=== PATIENT | female | born 2000 | race Caucasian/White ===

== ENCOUNTER 2024-04-24 08:50 | Outpatient (AMB) | payer OTHER, SELFPAY ==
--- NOTE | 2024-04-24 08:50 | MHC.OFFVIS ---
Vital Signs 04/24/24 08:58 Height 5 ft 3 in Weight 147 lb 8 oz BMI 26.1 BP 128/86 Blood Pressure Location Rt femoral Pulse 87 Pulse Source Pulse Oximeter Pulse Oximetry (%) 98 Oxygen Delivery Method Room Air Intake Visit Reasons: Chronic RLQ pain Intake Note: Pain today 02/20 Structural Steel Equipment Erector Required: No Structural Steel Equipment Erector Services: Structural Steel Equipment Erector Offered & Declined Accompanied by: Self / Same As Patient Allergies dupilumab [From Dupixent Pen] Allergy (Unknown, Verified 04/24/24 08:57) Swelling lorazepam [From Ativan] Allergy (Unknown, Verified 04/24/24 08:57) Dystonia sulfamethoxazole [From Bactrim] Allergy (Unknown, Verified 04/24/24 08:57) serum sickness tezepelumab-ekko [From Tezspire] Allergy (Unknown, Verified 04/24/24 08:57) Hives trimethoprim [From Bactrim] Allergy (Unknown, Verified 04/24/24 08:57) serum sickness HPI HPI Chronic RLQ pain: Details: Patient is a pleasant 23 years old female with history of anemia, IBS, constipation, GERD, asthma, L5-S1 disc herniation and facet arthropathy, extensive toupet fundoplication for severe GERD (2011), kidney stones, presents today for initial evaluation for chronic right lower quadrant abdominal pain. She was referred to our office by her PCP to evaluate chronic right lower quadrant abdominal pain. Patient reports she underwent extensive GI and Senior Technical Trainer evaluation at [facility] and was told her symptoms were related to constipation and refractory GERD. Reports pelvic and transvaginal US in 2021 showed no ovarian cysts and abdominal MRI were normal, except severe constipation per patient. She also reports normal colonoscopy in 05/02/2023. Imaging and operative reports are not available today. Patient reports she is followed by Dr. Ty at [facility] and was started on Linzess for constipation with some resolution of constipation to the point of loose stools. She is currently titrating down Linzess due to loss of bowel control. Reports RLQ pain as constant tightness, aching, stabbing, sharp, shooting, dull, tiring, squeezing, bloating. Pain worsens with prolonged standing, tender to touch, and alleviated at times with lying down, resting, relaxation and breathing techniques. Reports increased pain during menstrual periods. Denies increase in pain with p.o. intake or fasting. She also reports low back pain with flexing forward or bending. Patient currently avoids gym workouts and weightlifting due to exacerbation of pain. Patient has tried pelvic floor therapy but found this to be invasive and ineffective. She was also previously seen at [facility] and [facility] pain management and underwent ultrasound-guided abdominal nerve blocks and scar pulling technique for incisional/scar pain after fundoplication procedure with no pain relief. She denies any significant pain around or at abdominal scars. Denies any fever, chills, weight loss, infection, rash, nausea, vomiting, bleeding, rectal pain, groin or perineum pain, weakness, footdrop, bladder or bowel dysfunction or saddle anesthesia. Location: RLQ abdominal wall pain, intermittent low back pain Duration: Chronic pain for1.5 years Characteristics of symptom or complaint: Squeezing, spasming, stabbing, tiring, aching, dull, shooting, pressure Aggravating or associated factors: Standing, sitting, physical activity, ADLs, sneezing, exercizing Relieving factors: Laying down, Tylenol, Ibuprofen, Linzess Treatment: GI and Senior Technical Trainer evaluations, MRI, Abd/Pelvic/transvaginal US, scar pulling, PT [facility] Medical History (Updated 04/24/24 @ 21:55 by RONY Woods) Deviated septum IBS (irritable bowel syndrome) Asthma Eczema Anemia GERD (gastroesophageal reflux disease) Constipation Chronic right lower quadrant pain Surgical History (Updated 04/24/24 @ 20:49 by RONY Woods) History of Juan fundoplication (~2011) Social History (Updated 04/24/24 @ 08:59 by Daisy Chapa) Alcohol intake: current Alcohol intake frequency: holidays/special occasions only Patient Tobacco Use Status: Never used Tobacco Review of Systems Const All systems reviewed & are unremarkable except as noted in HPI and below Physical Exam Vital Signs: Last Vital Signs Pulse 87 04/24/24 08:58 BP 128/86 04/24/24 08:58 Pulse Ox 98 04/24/24 08:58 Oxygen Delivery Method Room Air 04/24/24 08:58 BMI result Body Mass Index 26.1 General: Appears afebrile. Alert and oriented. Mood and affect appropriate. Follows and participates in conversation appropriately. Respiratory effort is unlabored. No cough. No nasal discharge. Able to transition from sit to stand unassisted. Ambulates with bilaterally normal heel strike and toe off. GI Inspection: Yes normal to inspection, No abdominal wall ecchymosis, Yes scar and No visible herniation Palpation (GI): Soft to palpation, Tenderness to palpation present (GI) in the RLQ; psoas sign negative, with no rebound tenderness and Rovsing's sign negative, Guarding due to palpation present (GI) in the RLQ, not rigid, No hepatosplenomegaly present and Carnett's sign positive Percussion: Yes normal to percussion General: Yes no CVA tenderness Back/Spine/Pelvis Back: no CVA tenderness Cervical Spine: cervical ROM normal and No Cervical spine tenderness Thoracic/Lumbar Spine: thoracic and lumbar spine normal to inspection, No Thoracic/lumbar spine scar(s), Lasegue's sign negative, straight leg raise negative bilaterally, pain with thoraco-lumbar ROM, paraspinal muscle tenderness on the left, No thoracic spinal tenderness and lumbar spinal tenderness at L3 Pelvis: no buttock tenderness Sacroiliac joints: bilaterally nontender Extrem General: Yes capillary refill normal, Yes no clubbing, cyanosis or edema and Yes no calf tenderness Results Reviewed Results Reviewed: MR LUMBAR SPINE WITHOUT CONTRAST 02/25/2018 HISTORY: Low back pain, sciatica, rule out disc disease, initial encounter. COMPARISON: None. TECHNIQUE: Sagittal and axial T1-weighted and fast spin echo T2-weighted images were obtained. FINDINGS: There is significant image degradation due to motion somewhat limiting the exam. L1-2: The disc is of normal height and signal intensity without significant disc bulge or herniation. L2-3: The disc is of normal height and signal intensity without significant disc bulge or herniation. L3-4: The disc is of normal height and signal intensity without significant disc bulge or herniation. L4-5: The disc is of normal height and signal intensity without significant disc bulge or herniation. L5-S1: There is mild retrolisthesis. The disc is of diminished height and signal intensity. There is moderate central disc herniation and degenerative facet arthropathy abutting but not definitely displacing the S1 nerve roots and causing no significant impression upon the dural sac or foramen. There is straightening of the normal lumbar lordosis and mild retrolisthesis at L5-S1. The conus terminates at L1 and appears normal. There is no paraspinous mass. IMPRESSION: 1. Limited examination due to motion. 2. Moderate central disc herniation and mild degenerative facet arthropathy L5-S1. Disc material abuts but does not definitely displace the S1 nerve roots within the lateral recesses. 3. Lumbar muscle spasm. Assessment & Plan Assessment & Plan (1) Chronic right lower quadrant pain: Code(s): R10.31 - Right lower quadrant pain; G89.29 - Other chronic pain Category: Medical (2) Abdominal wall pain in right lower quadrant: Code(s): R10.31 - Right lower quadrant pain Category: Medical (3) History of fundoplication: Code(s): Z98.890 - Other specified postprocedural states Category: Surgical (4) Lumbar spondylosis: Code(s): M47.816 - Spondylosis without myelopathy or radiculopathy, lumbar region Category: Medical (5) Lumbar disc herniation: Code(s): M51.26 - Other intervertebral disc displacement, lumbar region Category: Medical Plan Medical release request sent to [facility] and [facility] for imaging and procedures related to chronic RLQ pain. Previous lumbar spine MRI reports reviewed with patient today. We will update her MRIs including thoracic to assess for neural integrity and compression and follow up on previous MRI findings. Patient requests this to be completed at [facility]. Discussed interventional treatments to address her abdominal wall pain in the RLQ, including diagnostic ultrasound-guided nerve blocks. Patient is also interested to restart physical therapy. Script provided today. All questions and concerns have been answered and patient agreed with the treatment plan. Follow-up for MRI results, old records review and sooner as needed. Orders: Orders MR lumbar spine wo con Today M47.816 - Spondylosis without myelopathy or radiculopathy, lumbar region, M51.26 - Other intervertebral disc displacement, lumbar region MR thoracic spine wo con Today G89.29 - Other chronic pain, R10.31 - Right lower quadrant pain, Z98.890 - Other specified postprocedural states PT Evaluation and Treatment Today G89.29 - Other chronic pain, R10.31 - Right lower quadrant pain, Z98.890 - Other specified postprocedural states Coding Level of Care Code New Pt Level 4 (85571) Diagnoses Chronic right lower quadrant pain R10.31; G89.29 Abdominal wall pain in right lower quadrant R10.31 History of fundoplication Z98.890 Lumbar spondylosis M47.816 Lumbar disc herniation M51.26
[2024-04-24 08:58] VITALS: BP 128/86; PULSE 87; O2SAT 98; BMI 26.1
== END 2024-04-24 09:43 | disposition home or self-care (01) ==
PROVIDERS: PCP Nurse Practitioner Primary Care; Visit Provider Nurse Practitioner Family
DX: R10.31 Right lower quadrant pain (principal); G89.29 Other chronic pain; Z98.890 Other specified postprocedural states; M47.816 Spondylosis without myelopathy or radiculopathy, lumbar region; M51.26 Other intervertebral disc displacement, lumbar region
CPT/HCPCS: 99204

== ENCOUNTER → 2024-04-24 08:50 | Outpatient (BNVA) | payer OTHER, SELFPAY | PROVIDERS: PCP Nurse Practitioner Primary Care; Visit Provider Nurse Practitioner Family ==

== ENCOUNTER 2025-05-25 13:09 | Outpatient (AMB) | payer OTHER, SELFPAY ==
--- NOTE | 2025-05-25 13:11 | MHC.OFFVIS ---
Vital Signs 05/25/25 13:12 Height 5 ft 3 in Weight 156 lb 4 oz BMI 27.7 BP 100/66 Blood Pressure Location Rt brachial Position Sitting Pulse 70 Pulse Source Pulse Oximeter Pulse Oximetry (%) 99 Oxygen Delivery Method Room Air Intake Visit Reasons: Asthma Allergies dupilumab (From Dupixent Pen) Allergy (Unknown, Verified 05/25/25 13:17) Swelling lorazepam (From Ativan) Allergy (Unknown, Verified 05/25/25 13:17) Dystonia sulfamethoxazole (From Bactrim) Allergy (Unknown, Verified 05/25/25 13:17) serum sickness tezepelumab-ekko (From Tezspire) Allergy (Unknown, Verified 05/25/25 13:17) Hives trimethoprim (From Bactrim) Allergy (Unknown, Verified 05/25/25 13:17) serum sickness HPI HPI Asthma: Details: Raghu is a pleasant 24 year old female, never smoker, with underlying asthma, eczema, allergic rhinitis, anemia, GERD, and IBS. She was referred by PCP for pulmonary evaluation, previously under the care of pediatric provider who has retired. She has been moderately controlled on Wixela, Albuterol, Flonase and Zyrtec. The patient has a history of pediatric asthma, which she hoped to outgrow, but it persisted into adulthood. 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 She has had multiple courses of steroids, including Medrol Dosepak, this year for exacerbations. In 2022 and 2023, she experienced severe asthma flare-ups and tried various treatments, including Tespire injections and Dupixent, both of which caused adverse reactions. She reports dry eye syndrome as a side effect of Dupixent, leading to the use of Restasis and is under the care of ophthalmology. The patient has a history of gastroesophageal reflux disease (GERD) since childhood, which led to frequent bronchoscopies due to aspiration and bacterial pneumonia. She underwent a partial fundoplication to manage severe GERD symptoms, which improved her condition but did not completely resolve it. She is not currently established with GI. She also has a history of eczema, which presents as patches resembling cigarette pineda, and she manages it with topical treatments. Additionally, she has experienced chronic sinusitis, which improved after deviated septum surgery in 2019. 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 Prior allergy testing revealed multiple environmental allergies however speeder machine operator felt allergen immunotherapy would not be an optimal choice due to significance of allergies. She has been advised to re-establish care with an speeder machine operator for ongoing management of her allergies. She reports a herniated disc at L5-S1, which causes significant back pain and radiculopathy, managed with physical therapy and injections. She has tried various non-surgical interventions but continues to experience pain and functional limitations, following with specialist in [place]. Previously underwent testing for CTD which was unremarkable. [facility] Medical History (Updated 05/29/25 @ 08:50 by Inna Shook NP) Deviated septum IBS (irritable bowel syndrome) Asthma Eczema Anemia GERD (gastroesophageal reflux disease) Constipation Chronic right lower quadrant pain Surgical History (Updated 04/24/24 @ 20:49 by RONY Woods) History of Juan fundoplication (~2011) Social History Alcohol intake: current Alcohol intake frequency: holidays/special occasions only Patient Tobacco Use Status: Never used Tobacco Review of Systems Const Denies chills, Denies excessive sweating, Denies fever(s), Denies headache(s) and Denies night sweats Eyes Denies dry eyes, Denies irritation and Denies itchy eyes ENT Reports Normal hearing present, Denies headache(s), Denies nasal congestion, Denies nasal discharge, Denies post nasal drip and Denies sore throat Card Denies chest pain, Denies chest pain at rest, Denies chest pain with activity, Denies claudication, Denies leg edema, Reports dyspnea on exertion, Denies orthopnea and Denies paroxysmal nocturnal dyspnea Resp Denies chest congestion, Denies cough, Denies excessive phlegm production, Denies pain on inspiration, Denies pain with cough, Reports dyspnea on exertion, Denies stridor and Reports wheezing Musc Denies myalgias Neuro Reports Normal hearing present and Denies headache(s) Endo Denies excessive sweating Ascencion/Lymph Denies lymphadenopathy Aller/Immun Denies itchy eyes, Denies seasonal rhinorrhea and Reports wheezing Physical Exam Vital Signs: Last Vital Signs Pulse 70 09/12/25 13:12 BP 100/66 05/25/25 13:12 Pulse Ox 99 05/25/25 13:12 Oxygen Delivery Method Room Air 05/25/25 13:12 BMI result Body Mass Index 27.7 Const General: cooperative, healthy appearing, comfortable, no acute distress, well developed and alert Orientation/consciousness: patient oriented x3 Limitations: no limitations HEENT Head: Yes normal to inspection, Yes normocephalic and Yes atraumatic Ears: hearing grossly normal bilaterally and external ears normal Eyes General: appearance normal, both eyes and all related structures Eyelids: Yes eyelids normal Sclerae: sclerae normal EOM: EOMs intact bilaterally Neck Neck: Yes normal visual inspection and Yes no lymphadenopathy Lymphatic: no lymphadenopathy noted Chest Chest palpation & inspection: normal inspection of the chest Resp Effort & Inspection: normal respiratory effort, able to speak in complete sentences, no audible wheezes, no cough, no stridor, not tachypneic, no tripod positioning and no use of accessory muscles Auscultation: clear to auscultation bilaterally Cardio Jugular venous distension: no JVD Rate: regular rate Rhythm: regular rhythm Skin Other: warm, dry General skin exam: no rashes or lesions noted Neuro General: patient oriented x3 Cranial nerves: Yes Normal hearing present Cognition (Neuro): normal cognition Gait exam (Neuro): Normal gait present Extrem General: Yes normal to inspection, Yes capillary refill normal, Yes no clubbing, cyanosis or edema and Yes no pedal edema Psych Appearance: grossly normal and well kempt Speech and movement: Normal speech and movement present and Clear speech present Affect: normal affect Attitude: cooperative Thought process: Normal thought process present Thought content: Normal thought content present Insight: Good insight present (Psych) Judgement: Good judgement present (Psych) Assessment & Plan Assessment & Plan (1) Asthma: Code(s): J45.909 - Unspecified asthma, uncomplicated Category: Medical (2) Environmental and seasonal allergies: Code(s): J30.89 - Other allergic rhinitis Category: Medical Plan The patient will undergo a full pulmonary function test to establish a baseline for her asthma management. Consideration will be given to switching from Wixela to Trelegy, pending test results, to better manage her symptoms and reduce steroid use, currently patient reluctant to switch as she feels symptoms have been best managed with Wixela. A nebulizer will be provided for use during flare-ups, particularly when experiencing colds with nebulized albuterol solution. Further evaluation with blood tests and imaging will be conducted to assess for the diagnosis of ABPA, with CXR and RAST. The patient was advised to continue her current management for eczema, dry eye syndrome, GERD, and allergic rhinitis. A referral to an speeder machine operator was recommended for further evaluation of her allergies and anaphylaxis management. All questions were answered and patient is in agreement of plan. Will follow up to review results or sooner if needed. Orders: Orders Complete Blood Count Auto Diff 05/25/25 J30.89 - Other allergic rhinitis Resp Allergy Profile Region I 05/25/25 J30.89 - Other allergic rhinitis PFT pulmonary function test Today J45.909 - Unspecified asthma, uncomplicated XR chest 2V 05/25/25 R06.00 - Dyspnea, unspecified Immunoglobulin E 05/25/25 J30.89 - Other allergic rhinitis Referrals Allergy & Immunology Referral J30.89 - Other allergic rhinitis Medications: New albuterol sulfate 2.5 mg (3 mL) inhalation Q4-6H PRN 180 mL 0RF shortness of breath or wheezing Coding Level of Care Code New Pt Level 4 (53640) Complex EM visit Add On G2211 Diagnoses Asthma J45.909 Environmental and seasonal allergies J30.89
[2025-05-25 13:12] VITALS: BP 100/66; PULSE 70; O2SAT 99; BMI 27.7
--- OUTSIDE RECORDS SUMMARY | 2025-05-25 15:38 | XMS_ITS | Encounter Summary ---
Author Organization [facility] Address [address] [place] [id number] Phone Care Team Providers Care Pick Pulling Machine Operator Name Role Phone Shannan Barger MD Primary Care Provider [phone] Shannan Barger MD Primary Care Provider [phone] Shavon Mcgee NP Primary Care Provid er Encounter Details Date Type Department Care Team (Late st Contact Info) Description 01/09/2021 Procedure Pass [facility] [address] [place] [address] [place] [address] Social History Tobacco Use Types Packs/Day Years Used Date Smoking Tobacco: Never Assessed Comments Unknown Sex and Gender Information Value Date Recorded Sex Assigned at Not on file Legal Sex Female 8:04 AM EDT Gender Identity Not on file Sexual Orientation Not on file documented as of this encounter Plan of Treatment Not on file documented as of this encounter Visit Diagnoses Not on filedocumented in this encounter Care Teams Pick Pulling Machine Operator Relationship Specialty Start Date End Date Shannan Barger MD PCP - General 01/03/21 11/16/21 Shannan Barger MD [address] [place] [id number] PCP - General Pediatrics 11/17/21 08/10/24 Shavon Mcgee, ERICH [address] [place] [address] PCP - General Nurse Practitioner 08/11/24 documented as of this encounter Additional Source Comments The information contained in this document represents components of the legal health record. It is not the complete legal health record.[facility]
--- OUTSIDE RECORDS SUMMARY | 2025-05-25 15:38 | XMS_ITS | Encounter Summary ---
Author Organization [facility] Address [address] [place] [phone] Phone Care Team Providers Care Preschool Assistant Name Role Phone Shavon Mcgee FORESTRY WORKER Primary Care Provid er Encounter Details Date Type Department Care Team (Late st Contact Info) Description 11/17/2024 Procedure Pass [facility], [address] [address] Social History Tobacco Use Types Packs/Day Years Used Date Smoking Tobacco: Never Smokeless Tobacco: Never Alcohol Use Standard Drinks/Week Comments Not Currently 0 (1 standard drink = 0.6 oz pur e alcohol) Education Answer Date Recorded Are you interested in more education? Not on jose e 01/09/2023 Are you concerned about learning? Not on file 01/09/2023 No 01/09/2023 No 01/09/2023 Digital Access Answer Date Recorded No 02/09/2023 No 02/09/2023 Reliable internet access at home? Not on file 02/09/2023 Device with a working camera? Not on file Comments No Sex and Gender Information Value Date Recorded Sex Assigned at Not on file Legal Sex Female 8:04 AM EDT Gender Identity Not on file Sexual Orientation Not on file documented as of this encounter Plan of Treatment Not on file documented as of this encounter Visit Diagnoses Not on filedocumented in this encounter Care Teams Preschool Assistant Relationship Specialty Start Date End Date Shavon Mcgee NP [address] [place] [address] [address] [place], [place] [id number] PCP - General Nurse Practitioner 08/11/24 documented as of this encounter Additional Source Comments The information contained in this document represents components of the legal health record. It is not the complete legal health record.[facility]
--- OUTSIDE RECORDS SUMMARY | 2025-05-25 15:38 | XMS_ITS | Clinical Summary ---
Author Organization [facility] Address [address] [place] [address] Phone Care Team Providers Care Business Segment Manager Name Role Phone Shavon Mcgee TECHNICIAN TEST SYSTEMS Primary Care Provid er Allergies Active Allergy Reactions Criticality Noted Date Comments Lorazepam 01/08/2021 Sulfamethoxazole-Trimethoprim 2020 Haloperidol 01/08/2021 Peanut 01/08/2021 Shellfish Containing Products 2020 [place] 01/08/2021 Tree Nuts 04/16/2021 Medications fluticasone propion-salmete roL (ADVAIR DISKUS) 250-50 mcg/dose DISKUS Inhale 250 mcg/actuation of fluticasone into the lungs 2 (two) times a day. Active omeprazole (PRILOSEC) 40 MG capsule Take 20 mg by mouth 2 (two) times a day. Active cetirizine (ZYRTEC) 10 MG tablet Take 10 mg by mouth daily. Active fluticasone propionate (FLONASE) 50 mcg/actuation nasal spray 1 spray by Nasal route daily. Active cromolyn (OPTICROM) 4 % ophthalmic solution Place 1 drop into each eye 2 (two) times a day. BID Active SPIRIVA RESPIMAT 1.25 mcg/actuation Mist INHALE 2 PUFFS BY MOUTH EVERY EVENING DIRECTED 4 Active LINZESS 145 mcg Cap Take 1 capsule by mouth every morning. 4 Active drospirenone-e. estradioL-lm.FA 3-0.02-0.451 mg (24) (4) Tab 1 tablet Orally Once a day Active methylPREDNISol one (MEDROL DOSEPACK) 4 mg tablet follow package directions 21 tablet 1 4 Active Additional Information Patient not taking.Reported on 10/23/2024 RESTASIS 0.05 % suspension Place 1 drop into each eye every 12 (twelve) hours. 5 Active albuterol 90 mcg/actuation inhaler Inhale 2 puffs into the lungs every 6 (six) hours as needed for wheezing. Active DULoxetine (CYMBALTA) 20 MG capsule Take 1 capsule (20 mg total) by mouth daily. 90 capsule 3 5 Active Active Problems No known active problems Family History Medical History Relation Comments Cataracts Maternal Grandmother Cataracts Paternal Grandmother Relation Status Comments Maternal Grandmother Paternal Grandmother Social History Tobacco Use Types Packs/Day Years Used Date Smoking Tobacco: Never Smokeless Tobacco: Never Tobacco Cessation:Counseling Given: Not Answered Alcohol Use Standard Drinks/Week Comments Not Currently [...] on file Sexual Orientation Not on file Last Filed Vital Signs Vital Sign Reading Time Taken Comments Blood Pressure 119/73 11/17/2024 9:03 AM EST Pulse 77 11/17/2024 9:03 AM EST Temperature 36.8 C (98.3 F) 10/23/2024 10:00 AM EST Respiratory Rate 16 11/17/2024 9:03 AM EST Oxygen Saturation 99% 11/17/2024 9:03 AM EST Inhaled Oxygen Concentration - - Weight 68 kg (150 lb) 12/10/2024 4:03 PM EDT Height 160 cm (5' 3 ) 12/10/2024 4:03 PM EDT Body Mass Index 26.57 12/10/2024 4:03 PM EDT Plan of Treatment Health Maintenance Due Date Last Done Comments DEPRESSION SCREENING 2011 HEPATITIS C SCREENING 2017 HIV ONE-TIME SCREENING (18-65 YEARS) 2017 PAP SMEAR 2020 INFLUENZA VACCINE (#1) 2025 , 07/01/2018, 07/14/2017, Additional history exists COVID-19 VACCINE ( season) 2025 08/02/2021, 11/13/2020, 10/23/2020 SMOKING Hx and SMOKELESS TOBACCO SCREENING 11/17/2025 11/17/2024 Adult Td,Tdap Booster 09/21/2030 09/21/2020, 011 HIB VACCINES Completed 12/14/2000, 03/13, 01/15/2000, Additional history exists HEPATITIS A VACCINES Completed 05/11/2013, 10/05/19 13 HPV VACCINES Completed 05/11/2013, 11/12, 10/05/2012 PNEUMOCOCCAL VACCINES (0-49 years) Aged Out 11/21/2014, 05/13/2001, 09/21/2000, Additional history exists No longer eligible based on patient's age to complete this topic MENINGOCOCCAL VACCINES (ACWY) Completed 12/12/2015, 09/18/2010 MENINGOCOCCAL VACCINES (B) Completed 07/05/2020, Medical Devices Not on file Insurance [facility] EXPLORER POS EXPLORER POS EXPLORER POS EXPLORER POS [facility] [place] [address] [place] [address] EXPLORER POS [employer] Care Teams Business Segment Manager Relationship Specialty Start Date End Date Shavon Mcgee NP [address] [place] [address] PCP - General Nurse Practitioner 08/11/24 Additional Source Comments The information contained in this document represents components of the legal health record. It is not the complete legal health record.[facility]
--- OUTSIDE RECORDS SUMMARY | 2025-05-25 15:39 | XMS_ITS | Patient Health Record ---
Author Organization [facility] Address [address] [facility] [address] [place] [address] Care Team Providers Care Hole Digger Truck Driver Name Role Phone EverardoTatyana Primary Care Provider MADY Sherman Unavailable [phone] Allergies Allergen (clinical drug ingredient) Drug/Non Drug Allergy documented on EMR Reaction Allergy Type Onset Date Status Shellfish (FN) shellfish (uncoded) Unknown Allergy Active lorazepam Ativan dystonia Drug Allergy Active sulfamethoxazole / trimethoprim Bactrim serum sickness Drug Allergy Active peanut allergenic extract Peanut (Diagnostic) Unknown Drug Allergy Active Tree Nuts Unknown Allergy Active Reason For Referral No Information Medications Medication SIG (Take, Route, Frequency, Duration) Notes Start Date End Date Status Restasis Active Cromolyn Sodium 4 % 1 drop into affected eye Ophthalmic Four times a day Not-Taking Famotidine 40 MG 1 tablet at bedtime Orally Once a day Not-Taking Omeprazole 40 MG 1 capsule 30 minutes before morning meal Orally Once a day Active predniSONE 20 MG 1 tablet Orally Once a day Not-Taking ZyrTEC Allergy 10 MG 1 tablet Orally Onc e a day Active Ibuprofen 800 MG 1 tablet with food o r milk as needed Orally Three times a day; Duration: 30 days Not-Taking Drospiren-Eth Estrad-Levomefol 3-0.02-0.451 MG 1 tablet Orally Once a day Active EPINEPHrine 0.3 MG/0.3ML as directed Injection Active Doxycycline Monohydrate 100 MG 1 capsule Orally Once a day Not-Taking Clobetasol Propionate 0.05 % 1 application Externally Twice a day PRN Active Meloxicam 7.5 MG 1 tablet with food Orally Once a day; Duration: 30 days 10/10/2024 Active Advair Diskus 250-50 MCG/ACT 1 puff Inhalation Twice a day Active Spiriva Respimat Not -Taking Dupixent 300 MG/2ML as directed Subcutaneous Not-Taking Problems Problem Type SNOMED Code ICD Code Onset Dates Problem Status W/U Status Risk Notes Problem Chronic pain (64113138) Other chronic pain (G89.29) Active confirmed Problem Mononeuropathy of lower limb (369243665) Peripheral neuritis of left foot (G57.92) Active confirmed Problem Vitamin D deficiency (40483105) Vitamin D deficiency (E55.9) Active confirmed Problem Tarsal coalition of left foot (35060994748062551 ) 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 Vital Signs Height 5ft 3in in 10/25/2024 Weight 154.7 lbs 10/25/2024 BMI 27.4 kg/m2 10/25/2024 Procedures Procedure Date Ordered Date Performed Result Body Sit e AFO ANK GAUNTLT PREFAB W/FIT&ADJ 10/10/2024 N/A Encounters Encounter Location Date Provider Diagnosis [facility] [address] [address] 10/10/2024 MADY CASTILLO Acute pain of right foot M79.671 ; 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 ; Pain in left foot M79.672 ; Other chronic pain G89.29 ; Acquired pes planus of left foot M21.42 and Tarsal coalition of left foot Q66.89 [facility] [address] [address] 10/25/2024 MADY CASTILLO Acute pain of right foot M79.671 and 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 Time was 45 minutes spent in review of all these facets including face to face discussion with the patient regarding my findings and in discussion of a current and future treatment plan. Ms. Jones presents for a follow up visit today. She has a new problem to the right foot that started a week ago. She has significant pain over the dorsal lateral midfoot region with a palpable soft tissue nodule present. Three weightbearing radiographs of the right foot taken in the office today and compared to her radiographs back in Aug. No obvious bony abnormality in the area of the bump. This seems like it is soft tissue in nature. Uncertain if it is cystic or not. I advised she monitor it for any changes in size. I started her on meloxicam 7.5mg with food daily for the next week as needed for the pain and advised she continue to ice. She can stop the ibuprofen for now. All Risks of taking NSAIDS were reviewed with the patient today. Risks included increase in blood pressure, heart attack, stroke, gastrointestinal irritation leading to ulceration and bleeding, renal injury, renal failure, and allergic reaction. I will re-evaluate the palpable bump in 2 weeks or sooner if needed. 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 Time was 30 minutes spent in review of all these facets including face to face discussion with the patient regarding my findings and in discussion of a current and future treatment plan. Ms. Jones presents for a follow up visit today. She had acute right foot pain with a small palpable mass at her last visit. She states it has since improved with tylenol and is no longer as sensitive. She has not had any other changes to that foot. She has her orthotic scanning appt next week. I advised that she continue to monitor for any changes in the right foot and let me know. I also would like to see how she does in the orthotics once she has them for a couple of months. She was agreeable. 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 Jones continues to struggle with her chronic left midfoot and rearfoot pain. She has had two MRIs in th past to the left foot and ankle. 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 She did have a fluoro guided injection into this area over a year ago with some temporary relief. She also had a biopsy of the cystic bone lesion at the base of the left 3rd met. This came back benign. She does have a fairly flexible pes planus bilaterally, the left more so than the right. She would like to continue with conservative measure. I discussed custom inserts to help with stability. I did advise that these are an out of pocket cost and do take time to wean into. I also gave her an ASO ankle brace to help with ankle stability when she is doing any prolonged exercise or ambulation. This was dispensed in the office today. She was agreeable to proceed with the inserts at this time. I will set her up with an orthotics lab in the area. I do think a component of her pain is due to her chronic spine issues and possibly an underlying connective tissue vs inflammatory pathology. She continues to follow with other outside specliasts for this. Patient is ambulatory and requires stabilization of the forefoot and rearfoot due to pes planus with chronic pain. Patient will need the device for more than 6 months. Patient has the potential to benefit functionally and there is a need to control the forefoot and rearfoot in more than one plane. Treatment goals are to decrease strain on the deformed joints of the forefoot and rearfoot, to improve gait stability, and decrease pain and progression of deformity. This treatment is a viable alternative to reconstructive surgery. In this case prefabricated orthotics will not fit/secure to the patient due to their irregular contours and deformities. Custom orthotics must be fabricated to ensure proper fit and safety to the patient and to also reduce the risks of gapping, pressure spots, skin irritation, wounds, and injury. 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) Plan Of Treatment Pending Test Test Name Order Date X ray : Foot, right 3v 10/10/2024 AFO BRUNILDA GAJAMILALT PREFAB W/FIT&ADJ 025 Insurance Providers Payer Name Payer Address Payer Phone Subscriber Number Group Number Insured Name Patient Relationship to Insured Coverage Start Date Coverage End Date [place] [address] [place] [phone] [id number] Raghu Jones Self - patient is the insured Medications Administered Medication Instructions Date of Administration Dosage Notes dexAMETHasone Sod Phosphate PF 09/22/2023 2 mg Kenalog 09/22/2023 5 mg Medical (General) History Medical History History ICD Code Anemia Asthma ? Reactive Airway. Follows with P ulm ? Eczema (never biopsied) ex tremities and hairline. Responds to topical steroids GERD (gastroesophageal reflux disease): Since childhood. Severe IBS (irritable bowel syndrome) C and D mild intermittent asthma with allergic r hinitis without complication herpes simplex virus type 1 anxiety + COVID 03/2022 COVID vaccinated X 3 ([employer]) Urolithiasis as a child Lower back pain, L5-S1 with radicular sy mptoms. Vernal keratoconjuctivitis Numerous Allergies Surgical History Surgery Date(Month/Year) deviated septum repair 2019 Juan Fundoplication 2011 Hospitalization History Reason Date(Month/Year) GI issues upper respiratory infection asthma GERD IBS Juan Fundoplication 2011
--- OUTSIDE RECORDS SUMMARY | 2025-05-25 15:39 | XMS_ITS | Encounter Summary ---
Author Organization [facility] Address [address] [place] [address] Phone Care Team Providers Care Truckman Name Role Phone Shavon Mcgee WINDSHIELD REPAIR TECHNICIAN Primary Care Provid er Encounter Details Date Type Department Care Team (Late st Contact Info) Description 11/17/2024 Procedure Pass [facility], [address] [address] Social History Tobacco Use Types Packs/Day Years [...] on filedocumented in this encounter Care Teams Truckman Relationship Specialty Start Date End Date Shavon Mcgee NP [address] [place] [address] [address] [place], [place] [id number] PCP - General Nurse Practitioner 08/11/24 documented as of this encounter Additional Source Comments The information contained in this document represents components of the legal health record. It is not the complete legal health record.[facility]
--- OUTSIDE RECORDS SUMMARY | 2025-05-25 15:39 | XMS_ITS | Clinical Summary ---
Author Organization [facility] Address [address] [place] [address] Phone Care Team Providers Care Project Consultant Name Role Phone Unavailable Primary Care Provider Unavailabl e Family History Relation Name Status Comments Father Alive Father: Alive a nd well Maternal Grandfather Materna l grandfather: GERD Mother Alive Mother: Alive a nd well Social History Tobacco Use Types Packs/Day Years Used Date Smoking Tobacco: Never Assessed Comments Unknown Sex and Gender Information Value Date Recorded Sex Assigned at Not on file Legal Sex Female 4:26 PM EDT Gender Identity Not on file Sexual Orientation Not on file Plan of Treatment Health Maintenance Due Date Last Done Comments MMR Vaccines (1 of 1 - Stand elva series) 2000 Varicella Vaccines (1 of 2 - 13+ 2-dose series) 2012 HPV Vaccines (1 - 3-dose series) 2014 DTaP,Tdap,and Td Vaccines (1 - Tdap) 2017 Hepatitis B Vaccines (1 of 3 - 19+ 3-dose series) 2018 Influenza Vaccines (#1) 2025 COVID-19 Vaccine (1 - 2023-2 5 season) 2025 HIB Vaccines Aged Out No longer eligi ble based on patient's age to complete this topic Hepatitis A Vaccines Aged Out No long er eligible based on patient's age to complete this topic IPV Vaccines Aged Out No longer eligi ble based on patient's age to complete this topic Men B Vaccine Aged Out No longer elig ible based on patient's age to complete this topic Meningococcal Vaccine Aged Out No amy ewa eligible based on patient's age to complete this topic Pneumococcal Vaccine Aged Out No long er eligible based on patient's age to complete this topic
--- OUTSIDE RECORDS SUMMARY | 2025-05-25 15:39 | XMS_ITS | Clinical Summary ---
Author Organization [facility] Address [address] [place] [address] Phone Care Team Providers Care Processing Spec Name Role Phone Shannan Barger MD Primary Care Provider Unavaila ble Shannan Barger MD Unavailable Unavailable Shannan Barger MD Unavailable Unavailable Social History Tobacco Use Types Packs/Day Years Used Date Smoking Tobacco: Never Assessed Comments Unknown Sex and Gender Information Value Date Recorded Sex Assigned at Not on file Legal Sex Female 7:25 PM EDT Gender Identity Not on file Sexual Orientation Not on file Plan of Treatment Not on file Care Teams Processing Spec Relationship Specialty Start Date End Date Shannan Barger MD PCP - General 03/08/08 Shannan Barger MD PCP - Clinical PCP 11/20/15 Shannan Barger MD PCP - Insurance PCP 03/08/08
--- OUTSIDE RECORDS SUMMARY | 2025-05-25 15:39 | XMS_ITS | Encounter Summary ---
Author Organization [facility] Address [address] [place] [address] Phone Care Team Providers Care Operations Architect Name Role Phone Van Powell MD Primary Care Provider Andrey jacob Encounter Details Date Type Department Care Team (Late st Contact Info) Description 04/29/2017 Conversion Encounter [facility] [place] [address] Social History Tobacco Use Types Packs/Day Years [...] on filedocumented in this encounter Care Teams Operations Architect Relationship Specialty Start Date End Date Van Powell MD PCP - General 04/23/17 03/04/23 documented as of this encounter
== END 2025-05-25 14:12 | disposition home or self-care (01) ==
LOC: HO.HPSW 13:09
PROVIDERS: PCP Nurse Practitioner Primary Care; Referring Provider Nurse Practitioner Primary Care; Visit Provider Nurse Practitioner Family
DX: J45.909 Unspecified asthma, uncomplicated (principal); J30.89 Other allergic rhinitis
CPT/HCPCS: 99204

== ENCOUNTER 2025-08-28 15:46 | Outpatient (REF) | payer OTHER, SELFPAY ==
--- NOTE | 2025-08-28 15:50 | PFT_ITS ---
Spirometry [] Lung Volumes [] Diffusion Capacity [] Methacholine Challenge [] Flow Volume Loops [] MVV [] MIP/MEP(Max inspiratory pressure/Max expiratory pressure) [] 6 Minute Walk Test [] ABG [] Interpretation [] MTDD
[2025-08-28 16:30] VITALS: PULSE 76
--- OUTSIDE RECORDS SUMMARY | 2025-08-28 19:51 | XMS_ITS | Patient Health Record ---
Author Organization [facility] Address [address] [facility] [address] [place] [address] Care Team Providers Care Deputy Clerk Name Role Phone OneidaTatyana Primary Care Provider MADY Sherman Unavailable [phone] Allergies Allergen (clinical drug ingredient) Drug/Non Drug [...] W/U Status Risk Notes Problem Chronic pain (92852974) Other chronic pain (G89.29) Active confirmed Problem Mononeuropathy of lower limb (413498339) Peripheral neuritis of left foot (G57.92) Active confirmed Problem Vitamin D deficiency (02949450) Vitamin D deficiency (E55.9) Active confirmed Problem Tarsal coalition of left foot (72118430953499718 ) 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 Vital Signs Height 5ft 3in in 10/25/2024 Weight 154.7 lbs 10/25/2024 BMI 27.4 kg/m2 10/25/2024 Procedures Procedure Date Ordered Date Performed Result Body Sit e AFO ANK GAUNTLT PREFAB W/FIT&ADJ 10/10/2024 N/A Encounters Encounter Location Date Provider Diagnosis [facility] [address] [address] 10/10/2024 MADY CASTILLO Acute pain of right foot M79.671 ; 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 ; Pain in left foot M79.672 ; Other chronic pain G89.29 ; Acquired pes planus of left foot M21.42 and Tarsal coalition of left foot Q66.89 [facility] [address] [address] 10/25/2024 MADY CASTILLO Acute pain of right foot M79.671 and 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 Vernal keratoconjuctivitis Numerous Allergies Surgical History Surgery Date(Month/Year) deviated septum repair 2019 Juan Fundoplication 2011 Hospitalization History Reason Date(Month/Year) GI issues upper respiratory infection asthma GERD IBS Juan Fundoplication 2011
--- OUTSIDE RECORDS SUMMARY | 2025-08-28 19:51 | XMS_ITS | Clinical Summary ---
Author Organization [facility] Address [address] [place] [address] Phone Care Team Providers Care Shower Attendant Name Role Phone Shavon Mcgee TRANSLATOR DEAF Primary Care Provid er Allergies Active Allergy Reactions Criticality Noted Date Comments Lorazepam 01/08/2021 Sulfamethoxazole-Trimethoprim 2020 Haloperidol 01/08/2021 Peanut 01/08/2021 Shellfish Containing Products 2020 [place] 01/08/2021 Tree Nuts 04/16/2021 Medications fluticasone propion-salmete [...] 07/05/2020, Medical Devices Not on file Insurance [facility] EXPLORER POS EXPLORER POS EXPLORER POS EXPLORER POS [facility] EX[place]ORER [place] [address] [address] [place] [address] EXPLORER POS [employer] Care Teams Shower Attendant Relationship Specialty Start Date End Date Shavon Mcgee NP [address] [place] [address] PCP - General Nurse Practitioner 08/11/24 Additional Source Comments The information contained in this document represents components of the legal health record. It is not the complete legal health record.[facility]
--- OUTSIDE RECORDS SUMMARY | 2025-08-28 19:51 | XMS_ITS | Encounter Summary ---
Author Organization [facility] Address [address] [place] [address] Phone Care Team Providers Care Construction Plumber Name Role Phone Shavon Mcgee PROTOTYPE MODEL MAKER Primary Care Provid er Encounter Details Date Type Department Care Team (Late st Contact Info) Description 11/17/2024 Procedure Pass [facility], [address] [address] Social History Tobacco Use Types Packs/Day Years [...] on filedocumented in this encounter Care Teams Construction Plumber Relationship Specialty Start Date End Date Shavon Mcgee NP [address] [place] [address] [place] [phone] PCP - General Nurse Practitioner 08/11/24 documented as of this encounter Additional Source Comments The information contained in this document represents components of the legal health record. It is not the complete legal health record.[facility]
--- OUTSIDE RECORDS SUMMARY | 2025-08-28 19:51 | XMS_ITS | Clinical Summary ---
Author Organization [facility] Address [address] [place] [address] Phone Care Team Providers Care Logistics Technician Name Role Phone Unavailable Primary Care Provider [...] Vaccines (#1) 2025 COVID-19 Vaccine (1 - 2024-2 6 season) 2025 HIB Vaccines Aged Out No [...]
--- OUTSIDE RECORDS SUMMARY | 2025-08-28 19:51 | XMS_ITS | Clinical Summary ---
Author Organization [facility] Address [address] [place] [address] Phone Care Team Providers Care Trimming Cutter Machine Name Role Phone Shannan Barger MD Primary [...] of Treatment Not on file Care Teams Trimming Cutter Machine Relationship Specialty Start Date End Date Shannan Barger MD PCP - General 03/08/08 Shannan Barger MD PCP - Clinical PCP 11/20/15 Shannan Barger MD PCP - Insurance PCP 03/08/08
--- OUTSIDE RECORDS SUMMARY | 2025-08-28 19:51 | XMS_ITS | Encounter Summary ---
Author Organization [facility] Address [address] [place] [address] Phone Care Team Providers Care Program Arranger Name Role Phone Van Powell MD Primary Care Provider Andrey jacob Encounter Details Date Type Department Care Team (Late st Contact Info) Description 04/29/2017 Conversion Encounter [facility] [place] [address] Social History Tobacco Use Types Packs/Day Years [...] on filedocumented in this encounter Care Teams Program Arranger Relationship Specialty Start Date End Date Van Powell MD PCP - General 04/23/17 03/04/23 documented as of this encounter
--- OUTSIDE RECORDS SUMMARY | 2025-08-28 19:51 | XMS_ITS | Encounter Summary ---
Author Organization [facility] Address [address] [place] [phone] Phone Care Team Providers Care Bookbinder Apprentice Name Role Phone Shannan Barger MD Primary Care Provider [phone] Shannan Barger MD Primary Care Provider [phone] Shavon Mcgee NP Primary Care Provid er Encounter Details Date Type Department Care Team (Late st Contact Info) Description 01/09/2021 Procedure Pass [facility] Main [place] [address] [place] [address] Social History Tobacco Use Types Packs/Day Years [...] on filedocumented in this encounter Care Teams Bookbinder Apprentice Relationship Specialty Start Date End Date Shannan Barger MD PCP - General 01/03/21 11/16/21 Shannan Barger MD [address] [place] [id number] PCP - General Pediatrics 11/17/21 08/10/24 Shavon Mcgee, ERICH [address] [place] [address] PCP - General Nurse Practitioner 08/11/24 documented as of this encounter Additional Source Comments The information contained in this document represents components of the legal health record. It is not the complete legal health record.[facility]
--- OUTSIDE RECORDS SUMMARY | 2025-08-28 19:51 | XMS_ITS | Encounter Summary ---
Author Organization [facility] Address [address] [place] [phone] Phone Care Team Providers Care Alteration Manager Name Role Phone Shavon Mcgee PRODUCTION HELPER Primary Care Provid er Encounter Details Date Type Department Care Team (Late st Contact Info) Description 11/17/2024 Procedure Pass [facility], [address] [address] Social History Tobacco Use Types Packs/Day Years [...] on filedocumented in this encounter Care Teams Alteration Manager Relationship Specialty Start Date End Date Shavon Mcgee NP [address] [place] [address] [place] [phone] PCP - General Nurse Practitioner 08/11/24 documented as of this encounter Additional Source Comments The information contained in this document represents components of the legal health record. It is not the complete legal health record.[facility]
== END 2025-08-28 15:47 | disposition home or self-care (01) ==
LOC: HO.RESP 15:46
PROVIDERS: PCP Nurse Practitioner Primary Care; Visit Provider Nurse Practitioner Family
DX: J45.909 Unspecified asthma, uncomplicated (principal)
CPT/HCPCS: 94060; 94640; 94727; 94729

== ENCOUNTER → 2025-08-28 15:50 | Outpatient (BNV) | payer OTHER, SELFPAY | PROVIDERS: PCP Nurse Practitioner Primary Care; Visit Provider Internal Medicine Pulmonary Disease | DX: J45.909 Unspecified asthma, uncomplicated (principal) | CPT/HCPCS: 94060; 94727; 94729 ==